=== PATIENT | female | born 1975 | race African-American/Black ===

== ENCOUNTER 2024-04-20 04:05 | Inpatient (IN) | payer BC ==
[2024-04-19 10:30] VITALS: BMI 25.6
[2024-04-20] MEDS: IBUPROFEN 600 MG TABLET (FP) PO PRN (17:01)
[2024-04-21] MEDS ORDERED: ROCURONIUM BROMIDE 50 MG/5 ML SYRINGE ONE (08:22)
[2024-04-21] MEDS ORDERED: MIDAZOLAM HCL 2 MG/2 ML SINGLE DOSE VIAL ONE (08:22)
[2024-04-21] MEDS ORDERED: PROPOFOL 20 ML ONE (08:22)
[2024-04-21] MEDS ORDERED: LIDOCAINE HCL/PF 2% SDV 5ML VIAL ONE (08:23)
[2024-04-21] MEDS ORDERED: ceFAZolin SODIUM 1 GM VIAL ONE (08:33)
[2024-04-21] MEDS ORDERED: SODIUM CHLORIDE 0.9% P/F 10 ML VIAL IJ ONE (08:33)
[2024-04-21] MEDS: ceFAZolin SODIUM 1 GM VIAL IVPB ONE (08:38)
[2024-04-21] MEDS ORDERED: ONDANSETRON 4 MG/2 ML VIAL IVPUSH PRN (08:42)
[2024-04-21] MEDS ORDERED: KETOROLAC TROMETHAMINE 30 MG/1 ML VIAL ONE (09:13)
[2024-04-21] MEDS ORDERED: ONDANSETRON 4 MG/2 ML VIAL ONE ×2 (09:13)
[2024-04-21] MEDS ORDERED: DEXAMETHASONE SOD PHOSPHATE 4 MG/1 ML VIAL ONE ×2 (09:13)
[2024-04-21] MEDS ORDERED: ACETAMINOPHEN INJECTION 100 ML IVPB ONE (09:16)
[2024-04-21] MEDS ORDERED: SUGAMMADEX SODIUM 200 MG/2 ML VIAL ONE (09:23)
[2024-04-21] MEDS ORDERED: HYDROmorphone HCl 2 MG/ML VIAL ONE (09:25)
[2024-04-21] MEDS ORDERED: oxyCODONE HCL 5 MG TABLET PO PRN ×2 (10:06)
[2024-04-21] MEDS ORDERED: HYDROmorphone *PCA* 10MG/50ML DISP.SYRIN ONE (10:24)
[2024-04-21] MEDS: LACTATED RINGERS SOLUTION 1,000 ML IV SCH (10:30)
[2024-04-21] MEDS: HYDROmorphone *PCA* 10MG/50ML DISP.SYRIN PCA SCH (10:30)
[2024-04-21] MEDS: CEFAZOLIN SODIUM 2 GM in DEXTROSE 5%-WATER 100 ML IVPB ONE (10:49)
[2024-04-21] MEDS: CEFAZOLIN SODIUM 2 GM in DEXTROSE 5%-WATER 100 ML IVPB SCH (17:20)
[2024-04-21] MEDS ORDERED: CEFAZOLIN 2 GM in DEXTROSE 5%-WATER - 100 ML IVPB SCH (18:00)
[2024-04-22] MEDS: ACETAMINOPHEN 1000 MG/100 ML BAG IVPB PRN (08:45)
[2024-04-22] MEDS: IBUPROFEN 800 MG/8 ML IJ IVPB PRN (12:24)
[2024-04-22 21:01] VITALS: RESP 18
[2024-04-23 06:50] VITALS: TEMP 98.7
[2024-04-23 09:04] LABS: BASO % 0.4 % (0-2.0); EOS % 1.3 % (0-4.5); HEMATOCRIT 32.6 % (32.4-45.2); HEMOGLOBIN 10.7 GM/dL (10.7-15.3); LYMPH % 25.1 % (8-40); MCH 25.3 pg (25.7-33.7); MCHC 32.7 g/dl (32.0-36.0); MEAN CELL VOLUME 77.6 fl (80-96); MEAN PLT VOLUME 8.4 fl (7.5-11.1); MONO % 7.7 % (3.8-10.2); NEUT % 65.5 % (42.8-82.8); PLATELET COUNT 214 10^3/uL (134-434); RDW 19.7 % (11.6-15.6); WHITE BLOOD COUNT 7.6 K/mm3 (4.0-10.0)
[2024-04-23 10:16] VITALS: BP 132/83; PULSE 93
[2024-04-23] MEDS: ACETAMINOPHEN 325 MG TABLET (FP) PO PRN (10:42)
== END 2024-04-23 10:45 | disposition home or self-care (01) | DRG 743 ==
LOC: J2C 04:05 → J3W 10:08
PROVIDERS: ADMIT Obstetrics & Gynecology; ATTEND Obstetrics & Gynecology
PROC: 0UB70ZZ Excision of Bilateral Fallopian Tubes, Open Approach (ICD-10-PCS; 2024-04-21)
PROC: 0UB20ZZ Excision of Bilateral Ovaries, Open Approach (ICD-10-PCS; 2024-04-21)
PROC: 0UT90ZL Resection of Uterus, Supracervical, Open Approach (ICD-10-PCS; principal; 2024-04-21 08:30)
DX: D25.9 Leiomyoma of uterus, unspecified (principal); R10.2 Pelvic and perineal pain; N83.201 Unspecified ovarian cyst, right side
CPT/HCPCS: 36415; 81025; 85025; 86850; 86900; 86901; 88309-TC; 94010; 94760; J0131